=== PATIENT | female | born 2000 | race African-American/Black ===

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

== ENCOUNTER 2023-04-23 08:36 | Emergency (ER) | payer OTHER, BC ==
[~2023-04-23] VITALS: Ht 170 cm; Wt 65.0 kg
[~2023-04-23 08:36] MED LIST changes: +ACHD5005 PO; +DOCU100C37 PO; +HYDR15SO11 PO; -HYDR15SO8 PO; +IBUP-1773 PO; +MONT-40 PO; -MONT10TA24 PO
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
[2023-04-23 09:02] VITALS: BP 120/63
== END 2023-04-23 09:02 | disposition home or self-care (01) ==
LOC: EDUNIT# 08:36 → ER 08:40
DX: R51.9 Headache, unspecified (principal); V43.52XA Car driver injured in collision with other type car in traffic accident, initial encounter; Y92.410 Unspecified street and highway as the place of occurrence of the external cause
CPT/HCPCS: 99281